=== PATIENT | female | born 1955 | race Caucasian/White ===

== ENCOUNTER 2018-12-31 10:05 | Emergency (ER) | payer SELFPAY ==
[~2018-12-31] VITALS: Ht 165.1 cm; Wt 81.6 kg
[2018-12-31 10:23] LABS: BASOPHILS % (AUTO) 1 % (0-10); EOSINOPHILS # (AUTO) 0.1 10^3/uL (0.0-0.3); EOSINOPHILS % (AUTO) 1 % (0-10); HEMATOCRIT 44 % (35-52); HEMOGLOBIN 15.2 G/DL (11.5-16.0); LYMPHOCYTES % (AUTO) 27 % (12-44); MEAN CORPUSCULAR HEMOGLOBIN 31 PG (25-34); MEAN CORPUSCULAR HGB CONC 34 G/DL (32-36); MEAN CORPUSCULAR VOLUME 90 FL (80-99); MEAN PLATELET VOLUME 10.7 FL (7.4-10.4); MONOCYTES # (AUTO) 0.5 X 10^3 (0.0-1.0); MONOCYTES % (AUTO) 7 % (0-12); NEUTROPHILS # (AUTO) 4.8 X 10^3 (1.8-7.8); NEUTROPHILS % (AUTO) 65 % (42-75); PLATELET COUNT 351 10^3/uL (130-400); RED CELL DISTRIBUTION WIDTH 12.8 % (10.0-14.5); WHITE BLOOD COUNT 7.4 10^3/uL (4.3-11.0)
[2018-12-31 11:16] LABS: ALANINE AMINOTRANSFERASE 16 U/L (0-55); ALBUMIN 4.7 GM/DL (3.2-4.5); ALKALINE PHOSPHATASE 73 U/L (40-136); BILIRUBIN,TOTAL 0.9 MG/DL (0.1-1.0); BUN/CREATININE RATIO 9; CALCIUM 10.1 MG/DL (8.5-10.1); CARBON DIOXIDE 24 MMOL/L (21-32); CHLORIDE 106 MMOL/L (98-107); CREATININE SERUM 0.85 MG/DL (0.60-1.30); GFR ESTIMATED > 60; GLUCOSE 107 MG/DL (70-105); MAGNESIUM 2.3 MG/DL (1.8-2.4); POTASSIUM 3.7 MMOL/L (3.6-5.0); SODIUM 140 MMOL/L (135-145); TOTAL PROTEIN 8.3 GM/DL (6.4-8.2)
--- NOTE | 2018-12-31 11:41 | Diagnostic Imaging Report ---
Clinical indication: Patient with high blood pressure and dizzy. Exam: Portable chest x-ray upright view. Comparisons: None. Findings: Lungs/pleura: Lungs are clear. There is no pneumothorax. There is no pleural effusion. Mediastinum: Unremarkable. Pulmonary vasculature: Unremarkable. Heart: Unremarkable. Bones/extrathoracic soft tissue: There are mildly hypertrophic spurs involving the thoracic spine Impression: There is no radiographic evidence of acute cardiopulmonary process. Dictated by: Dictated on workstation # [id number]
[2018-12-31 12:01] VITALS: BP 174/98
--- NOTE | 2018-12-31 13:48 | ED Cardiac General ---
History of Present Illness General Chief Complaint: Cardiac/General Problems Stated Complaint: HIGH BP;LEFT ARM TINGLING Nursing Triage Note: PT STATES SHE BEGAN TAKING HTN MEDICATION ON SUNDAY. PT STATES SHE TOOK 2 LISONIPRIL YESTERDAY AND 1 THIS AM. PT STATES LEFT ARM TINGLING. PT DENIES CHEST PAIN. PT STATES A DIZZY EPISODE THIS AM BUT DENIES FALL. PT WAS JUST STARTED ON LISONPRIL 12/27 Source: patient Exam Limitations: no limitations History of Present Illness Date Seen by Provider: December 31, 2018 Time Seen by Provider: 10:15 Initial Comments This 63-year-old woman presents to the emergency room with complaints of hypertension and numbness without weakness in her left hand. She has no primary care provider but was seen at the [facility] walk-in clinic in [place] on December 27. She was hypertensive and started on lisinopril 10 mg daily. She noted her blood pressure to be elevated last night and was experiencing the tingling in her left hand. She took an extra lisinopril last night. She then took her lisinopril again this morning. She also took aspirin 162 mg this morning. She additionally reports a pinching feeling between her shoulders last night. She is not having chest pain at this time. She denies any use of stimulants or other substances that could increase her blood pressure. She reports her blood pressure this morning was 191/111. She has no known cardiac problems. She does not smoke. There is heart disease in her family. Her brother and her mother both have had problems with heart disease. Allergies and Home Medications Allergies Coded Allergies: No Known Drug Allergies (Unverified , 12/31/18) Home Medications Hydrochlorothiazide 25 Mg Tablet, 25 MG PO DAILY Prescribed by: OSMAR SALDIVAR on 12/31/18 1502 Patient Home Medication List Home Medication List Reviewed: Yes Review of Systems Review of Systems Constitutional: no symptoms reported EENTM: No Symptoms Reported Respiratory: See HPI Cardiovascular: See HPI Gastrointestinal: No Symptoms Reported Genitourinary: No Symptoms Reported Musculoskeletal: no symptoms reported Skin: no symptoms reported Psychiatric/Neurological: No Symptoms Reported Endocrine: No Symptoms Reported Hematologic/Lymphatic: No Symptoms Reported Past Pajpifa-Vqxdzy-Dhqyec Hx Past Med/Social Hx: Reviewed Nursing Past Med/Soc Hx Patient Social History Alcohol Use: Denies Use Recreational Drug Use: No Smoking Status: Never a Smoker 2nd Hand Smoke Exposure: No Recent Foreign Travel: No Contact w/Someone Who Travel: No Recent Infectious Disease Expo: No Recent Hopitalizations: No Physical Abuse: No Sexual Abuse: No Mistreated: No Fear: No Seasonal Allergies Seasonal Allergies: No Past Medical History Surgeries: No Respiratory: No Cardiac: Yes Hypertension Neurological: No Genitourinary: No Gastrointestinal: No Musculoskeletal: No Endocrine: No HEENT: No Cancer: No Psychosocial: No Integumentary: No Blood Disorders: No Adverse Reaction/Blood Tranf: No Family Medical History Reviewed and Corrections made Heart Disease Physical Exam Vital Signs Vital Signs - First Documented Capillary Refill : Less Than 3 Seconds Height, Weight, BMI Height: 5'5.00" Weight: 180lbs. oz. 81.114566yz; BMI Method:Stated General Appearance: No Apparent Distress, WD/WN HEENT: PERRL/EOMI, Normal ENT Inspection Neck: Normal Inspection Respiratory: Lungs Clear, Normal Breath Sounds, No Accessory Muscle Use, No Respiratory Distress Cardiovascular: Regular Rate, Rhythm, No Edema, No Murmur, Normal Peripheral Pulses Gastrointestinal: Normal Bowel Sounds, Non Tender, Soft Extremity: Normal Inspection, Non Tender, No Calf Tenderness, No Pedal Edema Neurologic/Psychiatric: Alert, Oriented x3, No Motor/Sensory Deficits, Normal Mood/Affect, outside maintenance worker II-XII Norm as Tested Skin: Normal Color, Warm/Dry Progress/Results/Core Measures Results/Orders Lab Results Laboratory Tests Test 12/31/18 10:15 12/31/18 13:22 Range/Units White Blood Count 7.4 4.3-11.0 10^3/uL Red Blood Count 4.93 4.35-5.85 10^6/uL Hemoglobin 15.2 11.5-16.0 G/DL Hematocrit 44 35-52 % Mean Corpuscular Volume 90 80-99 FL Mean Corpuscular Hemoglobin 31 25-34 PG Mean Corpuscular Hemoglobin Concent 34 32-36 G/DL Red Cell Distribution Width 12.8 10.0-14.5 % Platelet Count 351 130-400 10^3/uL Mean Platelet Volume 10.7 H 7.4-10.4 FL Neutrophils (%) (Auto) 65 42-75 % Lymphocytes (%) (Auto) 27 12-44 % Monocytes (%) (Auto) 7 0-12 % Eosinophils (%) (Auto) 1 0-10 % Basophils (%) (Auto) 1 0-10 % Neutrophils # (Auto) 4.8 1.8-7.8 X 10^3 Lymphocytes # (Auto) 2.0 1.0-4.0 X 10^3 Monocytes # (Auto) 0.5 0.0-1.0 X 10^3 Eosinophils # (Auto) 0.1 0.0-0.3 10^3/uL Basophils # (Auto) 0.0 0.0-0.1 10^3/uL Prothrombin Time 13.0 12.2-14.7 SEC INR Comment 1.0 0.8-1.4 Activated Partial Thromboplast Time 36 H 24-35 SEC Sodium Level 140 135-145 MMOL/L Potassium Level 3.7 3.6-5.0 MMOL/L Chloride Level 106 98-107 MMOL/L Carbon Dioxide Level 24 21-32 MMOL/L Anion Gap 10 5-14 MMOL/L Blood Urea Nitrogen 8 7-18 MG/DL Creatinine 0.85 0.60-1.30 MG/DL Estimat Glomerular Filtration Rate > 60 BUN/Creatinine Ratio 9 Glucose Level 107 H 70-105 MG/DL Calcium Level 10.1 8.5-10.1 MG/DL Corrected Calcium 8.5-10.1 MG/DL Magnesium Level 2.3 1.8-2.4 MG/DL Total Bilirubin 0.9 0.1-1.0 MG/DL Aspartate Amino Transf (AST/SGOT) 16 5-34 U/L Alanine Aminotransferase (ALT/SGPT) 16 0-55 U/L Alkaline Phosphatase 73 40-136 U/L Myoglobin 53.6 10.0-92.0 NG/ML Troponin I < 0.028 < 0.028 <0.028 NG/ML Total Protein 8.3 H 6.4-8.2 GM/DL Albumin 4.7 H 3.2-4.5 GM/DL TSH [place] Testing 3.91 0.35-4.94 UIU/ML My Orders Orders - OSMAR SORIANO MD Cbc With Automated Diff (12/31/18 10:11) Magnesium (12/31/18 10:11) Chest 1 View, Ap/Pa Only (12/31/18 10:11) Ekg Tracing (12/31/18 10:11) Cardiac Profile 1 (12/31/18 10:11) Comprehensive Metabolic Panel (12/31/18 10:11) Myoglobin Serum (12/31/18 10:11) Protime With Inr (12/31/18 10:11) Partial Thromboplastin Time (12/31/18 10:11) O2 (12/31/18 10:11) Monitor-Rhythm Ecg Trace Only (12/31/18 10:11) Ed Iv/Invasive Line Start (12/31/18 10:11) Thyroid Analyzer (12/31/18 10:22) Troponin I (12/31/18 13:15) Ct Head Wo-R/O Stroke (12/31/18 13:15) Vital Signs/I&O 12/31/18 12/31/18 12/31/18 12/31/18 10:10 10:10 12:01 15:31 Temp 98.9 98.9 Pulse 83 83 Resp 18 18 B/P (MAP) 189/113 (138) 174/98 (123) 174/98 (123) Pulse Ox 98 98 98 O2 Delivery Room Air Room Air Room Air Blood Pressure Mean: 123 Progress Progress Note #1: Time: 13:15 Progress Note Workup has been grossly unremarkable to this point. Patient is still hypertensive. She still has some tingling in the left hand. No focal neurologic deficits were identified on exam. Because there is tingling in the left hand in the context of hypertension, CT of the head was ordered to rule out stroke. I will also repeat a troponin as patient now states she has had some very brief intermittent twinges of pain in her chest. She is not having any pain at this time. Progress Note #2: Progress Note CT of the head showed no evidence of stroke or other pathology. Case was discussed with Dr. Valerio. Three-hour troponin was negative. Patient was pain free at the conclusion of workup. For treatment of hypertension, I have advised her to take lisinopril 20 mg daily and have added hydrochlorothiazide 25 mg daily. She was advised to follow-up to establish care with a primary care provider soon as possible. She was also advised to follow-up with Dr. Valerio to arrange stress testing. Initial ECG Impression Date: December 31, 2018 Initial ECG Impression Time: 10:46 Initial ECG Rate: 72 Initial ECG Rhythm: Normal Sinus Initial ECG Intervals: Normal Comment Normal sinus rhythm with no ST elevation or depression. No abnormal intervals. Nonspecific T-wave changes. No axis deviation. Diagnostic Imaging Diagonstic Imaging: Xray Plain Films/CT/US/NM/MRI: chest Comments Chest x-ray viewed by me and report reviewed. See report below: NAME: FARHAT MARTINEZ [facility] REC#: [id number] PT STATUS: REG ER : 1955 PHYSICIAN: OSMAR SORIANO MD ADMIT DATE: 12/31/18/ER Signed Date of Exam:12/31/18 CHEST 1 VIEW, AP/PA ONLY Clinical indication: Patient with high blood pressure and dizzy. Exam: Portable chest x-ray upright view. Comparisons: None. Findings: Lungs/pleura: Lungs are clear. There is no pneumothorax. There is no pleural effusion. Mediastinum: Unremarkable. Pulmonary vasculature: Unremarkable. Heart: Unremarkable. Bones/extrathoracic soft tissue: There are mildly hypertrophic spurs involving the thoracic spine Impression: There is no radiographic evidence of acute cardiopulmonary process. Dictated by: Dictated on workstation # [id number] Dict: 12/31/18 1138 Trans: 12/31/18 1234 CHAN [id number] Interpreted by: CALIXTO RAIN MD Electronically signed by: CALIXTO RAIN MD 12/31/18 1234 Diagonstic Imaging: CT Plain Films/CT/US/NM/MRI: head Comments CT head viewed by me and report reviewed. See report below: NAME: FARHAT MARTINEZ [facility] REC#: [id number] PT STATUS: REG ER : 1955 PHYSICIAN: OSMAR SORIANO MD ADMIT DATE: 12/31/18/ER Draft Date of Exam:12/31/18 CT HEAD WO-R/O STROKE INDICATION: Hypertension and left hand tingling and syncope and lightheadedness. TECHNIQUE: Noncontrast brain CT is performed. COMPARISON: There is no prior study for comparison. FINDINGS: There were no extra-axial fluid collections. No intracranial hemorrhage. No intracranial mass or mass effect. No midline shift. The ventricles are normal in size and position. There were no focal parenchymal abnormalities in the brain. Calvarial windows appear normal. IMPRESSION: Negative noncontrast brain CT. Dictated on workstation # [id number] Dict: 12/31/18 1429 Trans: 12/31/18 1433 [id number] Interpreted by: KAMERON CHANDRA MD Departure Impression Primary Impression: Hypertension Qualified Codes: I10 - Essential (primary) hypertension Additional Impressions: Paresthesia of left upper extremity Chest pain Qualified Codes: R07.9 - Chest pain, unspecified Disposition: HOME, SELF-CARE Condition: Improved Departure-Patient Inst. Decision time for Depature: 14:57 Referrals: NO,LOCAL PHYSICIAN (PCP) Primary Care Physician [place] VALERIO MD Patient Instructions: High Blood Pressure in Adults Add. Discharge Instructions: You may increase your lisinopril to 20 mg daily. Add hydrochlorothiazide as prescribed. Take hydrochlorothiazide early in the day. Return to the emergency room promptly if you have worsening symptoms such as increased frequency or intensity of chest pain, shortness of breath, or neurologic symptoms such as weakness of an extremity, weakness of the face, changes in vision, slurring of speech, etc. Drink plenty of clear liquids and eat a low salt diet. Avoid stimulants such as caffeine, decongestants medicines, energy drinks, etc. Follow-up with Dr. Valerio as soon as possible. Please call his office for an appointment and to set up a stress test. Take aspirin 81 mg daily until otherwise instructed. All discharge instructions reviewed with patient and/or family. Voiced understanding. Scripts Hydrochlorothiazide (Hydrochlorothiazide) 25 Mg Tablet 25 MG PO DAILY, #30 TAB Prov: OSMAR SORIANO MD 12/31/18 Copy Copies To 1: Virginia VALERIO MD Copies To 2: VEE CARVER JOSHUA T MD December 31, 2018 13:47
--- NOTE | 2018-12-31 14:33 | Diagnostic Imaging Report ---
INDICATION: Hypertension and left hand tingling and syncope and lightheadedness. TECHNIQUE: Noncontrast brain CT is performed. COMPARISON: There is no prior study for comparison. FINDINGS: There were no extra-axial fluid collections. No intracranial hemorrhage. No intracranial mass or mass effect. No midline shift. The ventricles are normal in size and position. There were no focal parenchymal abnormalities in the brain. Calvarial windows appear normal. IMPRESSION: Negative noncontrast brain CT. Dictated by: Dictated on workstation # [id number]
[2018-12-31] MEDS ORDERED: HYDR25TA4 PO (15:02)
[2018-12-31 15:31] VITALS: BP 174/98
== END 2018-12-31 15:14 | disposition home or self-care (01) ==
LOC: EDUNIT# 10:05 → ER 10:07
DX: I10 Essential (primary) hypertension (principal); R20.2 Paresthesia of skin; R07.9 Chest pain, unspecified; Z82.49 Family history of ischemic heart disease and other diseases of the circulatory system
CPT/HCPCS: 36415; 70450; 71045; 80053; 83735; 83874; 84443; 84484; 85025; 85610; 85730; 93005; 93041

== ENCOUNTER → 2019-02-03 | Outpatient (CLI) | payer SELFPAY ==
[~2019-02-03] MED LIST: HYDR25TA4 PO
== END ==
LOC: CARD 10:37
PROVIDERS: ATTEND Internal Medicine Interventional Cardiology
DX: I10 Essential (primary) hypertension (principal); R42 Dizziness and giddiness
CPT/HCPCS: 93306

== ENCOUNTER → 2020-07-15 | Day surgery (SDC) | payer MEDICARE ==
[~2020-07-15] MED LIST changes: +LIDOCAINE 1% INJ 20 ML 20 ML VIAL INJ ONE
--- NOTE | 2020-07-15 16:11 | Diagnostic Imaging Report ---
INDICATION: Left breast mass. The patient was brought to the sonographic suite, placed on the table in the supine position. Ultrasound imaging of the left breast was performed to evaluate appropriate entry site. The skin over the left breast was prepped and draped in the usual sterile fashion. A small amount of 1% lidocaine was utilized for local anesthesia. A total of 4 core biopsies were obtained of the spiculated hypoechoic solid mass at the 2:00 location of the left breast, 18 cm from the nipple utilizing a 14-gauge Achieve needle. A marker clip was then deployed. Hemostasis was obtained using manual compression. IMPRESSION: Successful ultrasound guided core biopsy of the spiculated mass at the 2:00 location of the left breast, 18 cm from the nipple. Pathology results are currently pending. Dictated by: Dictated on workstation # [id number]
--- NOTE | 2020-07-15 16:18 | Diagnostic Imaging Report ---
INDICATION: Left breast masses. Patient is status post ultrasound-guided biopsy. A left 2-D exaggerated CC and lateral medial mammography was performed after patient underwent a left breast ultrasound-guided biopsy. Spiculated mass in the upper outer left breast is again noted at approximately the 2:00 location. There is a marker clip along the posterior margin of the mass. A 2nd marker is seen adjacent to the spiculated lesion in the lower outer left breast. IMPRESSION: Marker clips adjacent to recently biopsied lesions at the 2 and 5:00 locations, as described. Dictated by: Dictated on workstation # [id number]
--- NOTE | 2020-07-15 16:37 | Diagnostic Imaging Report ---
INDICATION: Left breast mass. PROCEDURE: The patient presents for ultrasound guided biopsy. FINDINGS: The patient was brought to the sonographic suite, placed on the table in the supine position. Ultrasound imaging of the left breast was performed to evaluate appropriate entry site. The left breast was prepped and draped in the usual sterile fashion. A small amount of 1% lidocaine was utilized for local anesthesia. A total of 4 core biopsies were made of the spiculated hypoechoic mass at the 5:00 location of the left breast, 8 cm from the nipple utilizing the 14-gauge Achieve needle. A marker clip was then deployed. Hemostasis was obtained using manual compression. The patient tolerated the procedure well and was sent for post procedure mammogram in satisfactory condition. IMPRESSION: Successful ultrasound-guided core biopsy of the solid hypoechoic mass at the 5:00 location of the left breast, 8 cm from the nipple. Pathology results are currently pending. Dictated by: Dictated on workstation # [id number]
== END ==
LOC: RAD 13:00
PROVIDERS: ATTEND Family Medicine
DX: C50.412 Malignant neoplasm of upper-outer quadrant of left female breast (principal); C50.312 Malignant neoplasm of lower-inner quadrant of left female breast
CPT/HCPCS: 19083; 19084; 77065; G0279

== ENCOUNTER 2021-03-22 10:03 | Outpatient (RCR) | payer MEDICARE ==
[~2021-03-22 10:03] MED LIST changes: -LIDOCAINE 1% INJ 20 ML 20 ML VIAL INJ ONE
== END 2021-03-23 09:20 | disposition home or self-care (01) ==
LOC: ONC 10:03
PROVIDERS: ATTEND Radiology Radiation Oncology
DX: Z51.0 Encounter for antineoplastic radiation therapy (principal); C50.412 Malignant neoplasm of upper-outer quadrant of left female breast; I10 Essential (primary) hypertension; Z90.13 Acquired absence of bilateral breasts and nipples; Z79.899 Other long term (current) drug therapy; Z79.811 Long term (current) use of aromatase inhibitors; Z17.0 Estrogen receptor positive status [ER+]
CPT/HCPCS: 77290; 77295; 77300; 77332; 77334; 77336; 77417; 99204; 99214

== ENCOUNTER 2021-05-26 10:47 | Outpatient (RCR) | payer MEDICARE ==
[2021-06-20] MEDS ORDERED: LISI10TA25 PO (13:20)
[2021-06-20] MEDS ORDERED: CALC-903 PO (13:20)
[2021-06-20] MEDS ORDERED: ANAS1TAB50 PO (13:20)
== END 2021-06-21 | disposition home or self-care (01) ==
LOC: ONC 10:47
PROVIDERS: ATTEND Internal Medicine Hematology & Oncology
DX: Z51.0 Encounter for antineoplastic radiation therapy (principal); C50.912 Malignant neoplasm of unspecified site of left female breast; I10 Essential (primary) hypertension; Z45.2 Encounter for adjustment and management of vascular access device; Z90.12 Acquired absence of left breast and nipple; Z98.890 Other specified postprocedural states
CPT/HCPCS: 77290; 77300; 77332; 77334; 77336; 96523; 99213

== ENCOUNTER → 2021-06-20 | Outpatient (CLI) | payer MEDICARE ==
[~2021-06-20] VITALS: Ht 163.8 cm; Wt 75.2 kg
[~2021-06-20] MED LIST changes: +ANAS1TAB50 PO; +CALC-903 PO; +LISI10TA25 PO
== END | disposition home or self-care (01) ==
LOC: PREOP 05:43
PROVIDERS: ATTEND Surgery
DX: Z01.818 Encounter for other preprocedural examination (principal)

== ENCOUNTER 2021-06-27 07:36 | Day surgery (SDC) | payer MEDICARE ==
[~2021-06-27] VITALS: Ht 163.8 cm; Wt 75.2 kg
[2021-06-27] MEDS ORDERED: LACTATED RINGERS 1,000 ML IV ONE (07:43)
[2021-06-27] MEDS ORDERED: LACTATED RINGERS 1,000 ML IV STA (07:46)
--- NOTE | 2021-06-27 08:15 | Progress Note-Pre Operative ---
Pre-Operative Progress Note H&P Reviewed The H&P was reviewed, patient examined and no changes noted. Time Seen by Provider: 08:12 Date H&P Reviewed: Jun 27, 2021 Time H&P Reviewed: 08:12 Pre-Operative Diagnosis: screening colon LINDA KELLY DO Jun 27, 2021 08:15
--- NOTE | 2021-06-27 09:28 | Progress Note-Post Operative ---
Post-Operative Progess Note Surgeon (s)/It Business Systems Analyst (s) Surgeon LINDA KELLY DO It Business Systems Analyst: VARUN Alvarado Pre-Operative Diagnosis screening colon Post-Operative Diagnosis Diverticula int hemorrhoids Procedure & Operative Findings Date of Procedure 06/27/21 Procedure Performed/Findings Colonoscopy PROCEDURE NOTE: After informed consent was obtained, the patient was brought to the endoscopy suite, placed in bed in left lateral decubitus position. She was administered IV sedation by the SECTIONAL BELT MOLD ASSEMBLER who then monitored her vitals the entire time, heart rate, blood pressure and pulse ox and the scope was inserted. Pushed all the way to about 140 cm and pushed into the cecum. On the way in I noted a large amount of diverticula and took a picture. Once in the Cecum took a picture of appendiceal orifice and then slowly withdrew the scope insufflating to look circumferentially at the bermudez starting in the cecum, up the ascending colon to the hepatic flexure, then down the transverse colon, splenic flexure, into the descending colon down in the sigmoid and then into the rectal vault and retroflexed the scope. Took picture of the internal hemorrhoids; they were probably grade II. The patient tolerated the procedure. She was recovered in endoscopy suite. Anesthesia Type IV sedation by SECTIONAL BELT MOLD ASSEMBLER Estimated Blood Loss Estimated blood loss (mL): none Specimens/Packing Specimens Removed none LINDA KELLY DO Jun 27, 2021 09:28
[2021-06-27] MEDS ORDERED: proPOfol 200 MG/20 ML (DIPRIVAN) VIAL IV ONE (09:29)
--- NOTE | 2021-06-27 09:29 | Endoscopy Discharge Instruct ---
Endo Procedure/Findings Findings 1.: Diverticulosis 2.: Internal Hemorrhoids Discharge Instructions - Activity: You might feel a little sleepy until tomorrow. This is due to the medicine you received to relax you. Until tomorrow, you should: NOT drive a car, operate machinery or power tools. NOT drink any alcoholic beverages. NOT make any important decisions or sign importortant papers. Do not return to work until tomorrow, unless otherwise instructed. Resume previous activities tomorrow. Diet: Start by taking liquids. If you tolerate liquids, advance to solid food. 1.: Colonscopy in 10 years Notify Physician - If you experience excessive bleeding, unusual abdominal pain, fever, or chest pain, contact your doctor immediately. LINDA KELLY DO Jun 27, 2021 09:29
[2021-06-27 09:30] VITALS: BP 138/60
[2021-06-27 09:35] VITALS: BP_SYST 113; BP_SYST 115; BP_DIAS 58; BP_DIAS 60
--- NOTE | 2021-06-27 10:08 | Anesthesia-General Post-Op ---
MAC Patient Condition Mental Status/LOC: Same as Preop Cardiovascular: Satisfactory Nausea/Vomiting: Absent Respiratory: Satisfactory Pain: Controlled Complications: Absent Post Op Complications Complications None Follow Up Care/Instructions Patient Instructions None needed. Anesthesiology Discharge Order Discharge Order Patient is doing well, no complaints, stable vital signs, no apparent adverse anesthesia problems. No complications reported per nursing. CHEYENNE CORONEL CRNA Jun 27, 2021 10:08
[2021-06-27 10:16] VITALS: BP 115/60
== END 2021-06-27 10:16 | disposition home or self-care (01) ==
LOC: ENDO 07:36
PROVIDERS: ATTEND Surgery
DX: Z12.11 Encounter for screening for malignant neoplasm of colon (principal); K57.90 Diverticulosis of intestine, part unspecified, without perforation or abscess without bleeding; K64.8 Other hemorrhoids; I10 Essential (primary) hypertension; Z79.899 Other long term (current) drug therapy